=== PATIENT | male | born 1990 | race African-American/Black ===

== ENCOUNTER 2017-09-29 01:42 | Emergency (ER) | payer SELFPAY ==
[~2017-09-29] VITALS: Ht 177.8 cm; Wt 90.0 kg
[2017-09-29 01:51] VITALS: BP 125/64
== END 2017-09-29 03:00 | disposition left against medical advice (07) ==
LOC: ER 01:42
DX: R51 Headache (principal); R11.0 Nausea; R42 Dizziness and giddiness; R19.7 Diarrhea, unspecified; Z53.21 Procedure and treatment not carried out due to patient leaving prior to being seen by health care provider